=== PATIENT | female | born 1985 | race Caucasian/White ===

== ENCOUNTER 2024-09-19 16:12 | Emergency (ER) | payer SELFPAY ==
[~2024-09-19] VITALS: Ht 165.1 cm; Wt 59.0 kg
[2024-09-19 16:19] VITALS: BP 168/87; PULSE 82; RESP 16; TEMP 36.8; O2SAT 99
== END 2024-09-19 21:32 | disposition left against medical advice (07) ==
LOC: ER 16:12
DX: R50.9 Fever, unspecified (principal); Z53.21 Procedure and treatment not carried out due to patient leaving prior to being seen by health care provider